=== PATIENT | female | born 1995 | race American Indian/Alaskan Native ===

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

== ENCOUNTER 2017-01-11 13:37 | Emergency (ER) | payer OTHER ==
[2017-01-11 13:58] VITALS: BP 103/68
--- NOTE | 2017-01-11 14:47 | XRay Report ---
Cervical spine 2 views: Findings: Normal height of vertebral bodies and intervertebral disc are normal articular surfaces. No fracture. Normal prevertebral soft tissue. Impression: Essentially negative cervical spine.
--- NOTE | 2017-01-11 14:48 | XRay Report ---
Thoracic spine 2 views: History: Mid back pain. Findings: Normal height of vertebral bodies and intervertebral disc. Normal articular surfaces. No fracture. No paravertebral mass. Impression: Essentially negative thoracic spine.
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
== END 2017-01-11 15:49 | disposition home or self-care (01) ==
LOC: ED 13:37
DX: S16.1XXA Strain of muscle, fascia and tendon at neck level, initial encounter (principal); M54.5 Low back pain; V49.59XA Passenger injured in collision with other motor vehicles in traffic accident, initial encounter; X58.XXXA Exposure to other specified factors, initial encounter; Y93.9 Activity, unspecified; Y92.9 Unspecified place or not applicable; Y99.9 Unspecified external cause status
CPT/HCPCS: 72040; 72070; 99283

== ENCOUNTER 2017-03-11 17:43 | Emergency (ER) | payer MEDICAID, OTHER ==
[2017-03-11 18:05] VITALS: BP 126/87
--- NOTE | 2017-03-11 18:07 | Emergency Department Report ---
Stated Complaint: BLOOD IN STOOL Time Seen by Provider: 03/11/17 18:03 - HPI History of Present Illness: PT states she is bleeding. PT states she is noticing the blood when she uses the restroom. PT states she notices it in the toilet and on the tissue. PT states she had a baby 12 weeks ago. - ROS Review of Systems: - fatigue - cp - sob - Exam Physical Exam: PT looks well, non toxic gcs 15 MSE screening note: Focused history and physical exam performed. Due to findings the following was ordered: labs ED Disposition for MSE Condition: Stable
[2017-03-11 18:54] LABS: Alanine Aminotransferase 11 units/L (7-56); Albumin 4.3 g/dL (3.9-5); Albumin/Globulin Ratio 1.3 %; Alkaline Phosphatase 55 units/L (35-129); Anion Gap 17 mmol/L; BUN/Creatinine Ratio 16.66; Blood Urea Nitrogen 10 mg/dL (7-17); Calcium 8.9 mg/dL (8.4-10.2); Carbon Dioxide 23 mmol/L (22-30); Chloride 102.4 mmol/L (98-107); Glucose 83 mg/dL (65-100); Potassium 3.6 mmol/L (3.6-5.0); Sodium 139 mmol/L (137-145); Total Protein 7.6 g/dL (6.3-8.2)
[2017-03-11 18:58] LABS: Basophils % (Auto) 0.3 % (0.0-1.8); Hematocrit 40.2 % (30.3-42.9); Hemoglobin 13.2 gm/dl (10.1-14.3); Mean Corpuscular HGB Conc 33 % (30-34); Mean Corpuscular Hemoglobin 28 pg (28-32); Mean Corpuscular Volume 85 fl (79-97); Platelet Count 247 K/mm3 (140-440); Red Blood Count 4.73 M/mm3 (3.65-5.03); Red Cell Distribution Width 13.7 % (13.2-15.2); White Blood Count 9.9 K/mm3 (4.5-11.0)
[2017-03-11 19:09] LABS: INR 1.06 (0.87-1.13); Partial Thromboplastin Time 28.9 Sec. (24.2-36.6)
== END 2017-03-11 21:00 | disposition left against medical advice (07) ==
LOC: ED 17:43
DX: K92.1 Melena (principal); Z53.21 Procedure and treatment not carried out due to patient leaving prior to being seen by health care provider
CPT/HCPCS: 36415; 80053; 84703; 85025; 85610; 85730